=== PATIENT | female | born 1940 | race Caucasian/White ===

== ENCOUNTER 2018-02-25 11:11 | Emergency (ER) | payer OTHER, MEDICARE ==
[2018-02-25 11:34] VITALS: TEMP 98.6; BMI 33.1
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
[2018-02-25 12:46] LABS: BASO % 0.9 % (0-2.0); EOS % 3.2 % (0-4.5); HEMATOCRIT 34.7 % (32.4-45.2); HEMOGLOBIN 11.9 GM/dL (10.7-15.3); LYMPH % 16.2 % (8-40); MCH 26.1 pg (25.7-33.7); MCHC 34.2 g/dl (32.0-36.0); MEAN CELL VOLUME 76.5 fl (80-96); MEAN PLT VOLUME 9.4 fl (7.5-11.1); MONO % 7.5 % (3.8-10.2); NEUT % 72.2 % (42.8-82.8); PLATELET COUNT 225 K/MM3 (134-434); RBC 4.53 M/mm3 (3.60-5.2); WHITE BLOOD COUNT 5.9 K/mm3 (4.0-10.0)
[2018-02-25 13:09] LABS: ALBUMIN 3.4 g/dl (3.4-5.0); ANION GAP 3 (8-16); BLOOD UREA NITROGEN 22 mg/dL (7-18); CALCIUM 9.5 mg/dL (8.5-10.1); CHLORIDE 101 mmol/L (98-107); CO2 34 mmol/L (21-32); CREATININE 0.6 mg/dL (0.55-1.02); GLUCOSE,RANDOM 86 mg/dL (74-106); SGPT/ALT 14 U/L (12-78); SODIUM 138 mmol/L (136-145)
[2018-02-25 13:11] LABS: ALK PHOS 73 U/L (45-117); BILIRUBIN,TOTAL 0.9 mg/dL (0.2-1.0); POTASSIUM 4.3 mmol/L (3.5-5.1); SGOT/AST 39 U/L (15-37); TOT PROT 7.1 g/dl (6.4-8.2)
[2018-02-25 15:44] VITALS: BP 132/82; PULSE 64
== END 2018-02-25 15:14 | disposition home or self-care (01) ==
LOC: JER 11:11
DX: K64.9 Unspecified hemorrhoids (principal); I48.91 Unspecified atrial fibrillation; Z79.01 Long term (current) use of anticoagulants; I10 Essential (primary) hypertension; I50.9 Heart failure, unspecified; D64.9 Anemia, unspecified; D69.6 Thrombocytopenia, unspecified; K52.9 Noninfective gastroenteritis and colitis, unspecified; N39.498 Other specified urinary incontinence; Z90.49 Acquired absence of other specified parts of digestive tract; Z96.651 Presence of right artificial knee joint
CPT/HCPCS: 36415; 80053; 82272; 85025; 99281-25

== ENCOUNTER 2021-10-13 13:02 | Inpatient (IN) | payer OTHER ==
[2021-10-13 13:21] VITALS: BMI 31.0
[2021-10-13] MEDS ORDERED: FAMOTIDINE 20 MG/50 ML IVPB 20 MG/50 ML MG IVPB ONE ×2 (13:49→14:37)
[2021-10-13 15:06] LABS: EOS % 2.4 % (0-4.5); HEMATOCRIT 29.8 % (32.4-45.2); HEMOGLOBIN 9.7 GM/dL (10.7-15.3); LYMPH % 8.4 % (8-40); MCH 25.1 pg (25.7-33.7); MCHC 32.6 g/dl (32.0-36.0); MEAN PLT VOLUME 8.6 fl (7.5-11.1); MONO % 6.7 % (3.8-10.2); NEUT % 81.5 % (42.8-82.8); PLATELET COUNT 221 10^3/uL (134-434); RBC 3.87 M/mm3 (3.60-5.2); RDW 18.3 % (11.6-15.6); WHITE BLOOD COUNT 8.1 K/mm3 (4.0-10.0)
[2021-10-13 15:12] LABS: INR 1.91 (0.83-1.09); PROTHROMBIN TIME (PATIENT) 21.5 SEC (9.7-13.0)
[2021-10-13 15:15] LABS: ACTIVATED PTT 65.6 SECONDS (25.2-36.5)
[2021-10-13 15:19] LABS: EPI CELLS 10 /uL (0-25.1); HYALINE CASTS 1 /uL (0-3.1); URINE APPEARANCE CLEAR; URINE BACTERIA >9,000 /uL (0-1359); URINE BILIRUBIN NEGATIVE (NEGATIVE); URINE COLOR YELLOW; URINE GLUCOSE (UA) NEGATIVE (NEGATIVE); URINE KETONE NEGATIVE (NEGATIVE); URINE LEUK ESTERASE TRACE (NEGATIVE); URINE NITRITE POSITIVE (NEGATIVE); URINE PROTEIN NEGATIVE (NEGATIVE); URINE RBC 5 /uL (0-23.9); URINE WBC 53 /uL (0-25.8)
[2021-10-13] MEDS ORDERED: CEFTRIAXONE 1,000 MG in DEXTROSE 5%-WATER - 50 ML IVPB ONE ×2 (15:24→19:41)
[2021-10-13 15:31] LABS: CHLORIDE 97 mmol/L (98-107); SODIUM 137 mmol/L (136-145)
[2021-10-13 15:33] LABS: ALBUMIN 3.3 g/dl (3.4-5.0); ANION GAP 7 MMOL/L (8-16); CALCIUM 9.3 mg/dL (8.5-10.1); CO2 33 mmol/L (21-32); GLUCOSE,RANDOM 124 mg/dL (74-106); MAGNESIUM 2.5 mg/dL (1.8-2.4)
[2021-10-13 15:36] LABS: CREATININE 0.8 mg/dL (0.55-1.3); SGOT/AST 11 U/L (15-37)
[2021-10-13 15:37] LABS: SGPT/ALT 15 U/L (13-61)
[2021-10-13 15:38] LABS: BILIRUBIN,TOTAL 0.6 mg/dL (0.2-1)
[2021-10-13 15:39] LABS: ALK PHOS 114 U/L (45-117)
[2021-10-13 15:41] LABS: N-TERMINAL BNP 1450.1 pg/ml (5-450)
[2021-10-13] MEDS ORDERED: CEFTRIAXONE 1 GM/50 ML BAG ONE ×2 (15:43→19:50)
[2021-10-13] MEDS ORDERED: POTASSIUM CHLORIDE TABS 20 MEQ TABLET.ER (FP) PO ONE ×3 (16:08→21:11)
[2021-10-13 18:11] LABS: LIPASE 109 U/L (73-393)
[2021-10-13] MEDS ORDERED: FUROSEMIDE 40 MG/4 ML INJECTABLE VIAL IVPUSH ONE (20:23)
[2021-10-13] MEDS ORDERED: FUROSEMIDE 40 MG/4 ML INJECTABLE VIAL ONE (21:11)
[2021-10-13] MEDS ORDERED: APIXABAN 5 MG TABLET ONE (22:11)
[2021-10-13] MEDS: APIXABAN 5 MG TABLET PO SCH (22:14)
[2021-10-14] MEDS: FUROSEMIDE 40 MG/4 ML INJECTABLE VIAL IVPUSH SCH ×2 (05:50→13:47)
[2021-10-14] MEDS ORDERED: DEXTROSE 5%-WATER - 50 ML IVPB ONE (08:30)
[2021-10-14] MEDS ORDERED: cefTRIAXone SODIUM 1 GM VIAL ONE (08:30)
[2021-10-14 08:31] LABS: HEMATOCRIT 28.4 % (32.4-45.2); HEMOGLOBIN 9.2 GM/dL (10.7-15.3); MCH 25.2 pg (25.7-33.7); MCHC 32.3 g/dl (32.0-36.0); MEAN PLT VOLUME 9.1 fl (7.5-11.1); PLATELET COUNT 210 10^3/uL (134-434); RBC 3.65 M/mm3 (3.60-5.2); RDW 18.4 % (11.6-15.6); WHITE BLOOD COUNT 8.4 K/mm3 (4.0-10.0)
[2021-10-14] MEDS ORDERED: PT OWN MED DRAWER 7, Y5N ONE (08:37)
[2021-10-14 09:03] LABS: IRON SERUM 25 ug/dL (50-175); TOTAL IRON BINDING CAPACITY 346 ug/dL (250-450)
[2021-10-14 09:07] LABS: ALBUMIN 2.9 g/dl (3.4-5.0); BLOOD UREA NITROGEN 17.5 mg/dL (7-18)
[2021-10-14 09:08] LABS: MAGNESIUM 2.4 mg/dL (1.8-2.4)
[2021-10-14 09:10] LABS: CREATININE 0.7 mg/dL (0.55-1.3); PHOSPHOROUS 3.5 mg/dL (2.5-4.9)
[2021-10-14 09:12] LABS: BILIRUBIN,TOTAL 0.6 mg/dL (0.2-1); TOT PROT 6.3 g/dl (6.4-8.2)
[2021-10-14] MEDS: CEFTRIAXONE 1 GM in DEXTROSE 5%-WATER - 50 ML IVPB SCH (09:47)
[2021-10-14] MEDS: PANTOPRAZOLE 20 MG TABLET PO SCH (09:47)
[2021-10-14] MEDS: APIXABAN 5 MG TABLET PO SCH ×2 (09:47→21:35)
[2021-10-14] MEDS ORDERED: SPIRONOLACTONE 25 MG TABLET PO SCH (10:00)
[2021-10-14] MEDS: FERROUS SO4 325 MG TABLET (FP) PO SCH (18:06)
[2021-10-14] MEDS ORDERED: TETRAHYDROZOLINE HCL EYE DROPS OU PRN (23:34)
[2021-10-15] MEDS: ARTIFICIAL TEARS (POLYVINYL ALCOHOL) OPTH DROPS OU PRN ×3 (00:41→22:42)
[2021-10-15] MEDS: FUROSEMIDE 40 MG/4 ML INJECTABLE VIAL IVPUSH SCH ×2 (06:54→14:32)
[2021-10-15 06:58] LABS: EOS % 6.1 % (0-4.5); HEMATOCRIT 27.6 % (32.4-45.2); HEMOGLOBIN 8.9 GM/dL (10.7-15.3); LYMPH % 12.7 % (8-40); MCHC 32.1 g/dl (32.0-36.0); MEAN CELL VOLUME 77.9 fl (80-96); MONO % 8.7 % (3.8-10.2); NEUT % 71.5 % (42.8-82.8); PLATELET COUNT 200 10^3/uL (134-434); RBC 3.55 M/mm3 (3.60-5.2); RDW 18.7 % (11.6-15.6); WHITE BLOOD COUNT 7.6 K/mm3 (4.0-10.0)
[2021-10-15 07:20] LABS: ALBUMIN 2.8 g/dl (3.4-5.0)
[2021-10-15 07:23] LABS: CREATININE 0.7 mg/dL (0.55-1.3)
[2021-10-15 07:25] LABS: BILIRUBIN,TOTAL 0.4 mg/dL (0.2-1); TOT PROT 5.9 g/dl (6.4-8.2)
[2021-10-15] MEDS ORDERED: cefTRIAXone SODIUM 1 GM VIAL ONE (08:40)
[2021-10-15] MEDS ORDERED: DEXTROSE 5%-WATER - 50 ML IVPB ONE (08:40)
[2021-10-15] MEDS ORDERED: MINERAL OIL ENEMA 133 ML ENEMA RC ONE (09:31)
[2021-10-15] MEDS: POLYETHYLENE GLYCOL (HEALTHYLAX) 3350 17 GM PACKET PO SCH (10:01)
[2021-10-15] MEDS: PANTOPRAZOLE 20 MG TABLET PO SCH (10:01)
[2021-10-15] MEDS: CEFTRIAXONE 1 GM in DEXTROSE 5%-WATER - 50 ML IVPB SCH (10:01)
[2021-10-15] MEDS: SPIRONOLACTONE 25 MG TABLET PO SCH (10:01)
[2021-10-15] MEDS: APIXABAN 5 MG TABLET PO SCH ×2 (10:01→21:03)
[2021-10-15] MEDS: amLODIPine BESYLATE 5 MG TABLET (FP) PO SCH (10:02)
[2021-10-15] MEDS: FERROUS SO4 325 MG TABLET (FP) PO SCH ×2 (10:02→17:07)
[2021-10-15] MEDS ORDERED: PT OWN MED DRAWER 7, Y5N ONE (21:13)
[2021-10-15] MEDS ORDERED: MELATONIN 5 MG TABLETS PO ONE (23:46)
[2021-10-16] MEDS: FUROSEMIDE 40 MG/4 ML INJECTABLE VIAL IVPUSH SCH ×2 (06:06→14:28)
[2021-10-16 07:19] LABS: BASO % 1.1 % (0-2.0); EOS % 5.8 % (0-4.5); HEMOGLOBIN 9.2 GM/dL (10.7-15.3); LYMPH % 11.2 % (8-40); MCH 25.2 pg (25.7-33.7); MCHC 32.7 g/dl (32.0-36.0); MEAN CELL VOLUME 76.9 fl (80-96); MEAN PLT VOLUME 8.7 fl (7.5-11.1); MONO % 8.3 % (3.8-10.2); NEUT % 73.6 % (42.8-82.8); PLATELET COUNT 202 10^3/uL (134-434); RBC 3.64 M/mm3 (3.60-5.2); RDW 18.1 % (11.6-15.6); WHITE BLOOD COUNT 7.9 K/mm3 (4.0-10.0)
[2021-10-16 08:06] LABS: ALBUMIN 2.8 g/dl (3.4-5.0); CALCIUM 9.2 mg/dL (8.5-10.1); PHOSPHOROUS 3.6 mg/dL (2.5-4.9)
[2021-10-16 08:07] LABS: BILIRUBIN,TOTAL 0.6 mg/dL (0.2-1); BLOOD UREA NITROGEN 16.9 mg/dL (7-18); MAGNESIUM 2.6 mg/dL (1.8-2.4); TOT PROT 6.2 g/dl (6.4-8.2)
[2021-10-16 08:10] LABS: CREATININE 0.7 mg/dL (0.55-1.3)
[2021-10-16] MEDS ORDERED: cefTRIAXone SODIUM 1 GM VIAL ONE (08:20)
[2021-10-16] MEDS ORDERED: DEXTROSE 5%-WATER - 50 ML IVPB ONE (08:20)
[2021-10-16] MEDS: PANTOPRAZOLE 20 MG TABLET PO SCH (10:02)
[2021-10-16] MEDS: FERROUS SO4 325 MG TABLET (FP) PO SCH ×2 (10:02→16:49)
[2021-10-16] MEDS: APIXABAN 5 MG TABLET PO SCH ×2 (10:03→21:31)
[2021-10-16] MEDS: amLODIPine BESYLATE 5 MG TABLET (FP) PO SCH (10:03)
[2021-10-16] MEDS: CEFTRIAXONE 1 GM in DEXTROSE 5%-WATER - 50 ML IVPB SCH (10:04)
[2021-10-16] MEDS: SPIRONOLACTONE 25 MG TABLET PO SCH (10:04)
[2021-10-16] MEDS: POLYETHYLENE GLYCOL (HEALTHYLAX) 3350 17 GM PACKET PO SCH (10:22)
[2021-10-16] MEDS ORDERED: MELATONIN 5 MG TABLETS PO ONE (20:50)
[2021-10-17] MEDS: FUROSEMIDE 40 MG/4 ML INJECTABLE VIAL IVPUSH SCH ×2 (06:06→14:49)
[2021-10-17] MEDS ORDERED: cefTRIAXone SODIUM 1 GM VIAL ONE (09:05)
[2021-10-17] MEDS ORDERED: DEXTROSE 5%-WATER - 50 ML IVPB ONE (09:05)
[2021-10-17] MEDS: APIXABAN 5 MG TABLET PO SCH ×2 (09:43→23:20)
[2021-10-17] MEDS: CEFTRIAXONE 1 GM in DEXTROSE 5%-WATER - 50 ML IVPB SCH (09:44)
[2021-10-17] MEDS: FERROUS SO4 325 MG TABLET (FP) PO SCH ×2 (09:44→16:44)
[2021-10-17] MEDS: SPIRONOLACTONE 25 MG TABLET PO SCH (09:44)
[2021-10-17] MEDS: PANTOPRAZOLE 20 MG TABLET PO SCH (09:44)
[2021-10-17] MEDS: amLODIPine BESYLATE 5 MG TABLET (FP) PO SCH (09:44)
[2021-10-17] MEDS: POLYETHYLENE GLYCOL (HEALTHYLAX) 3350 17 GM PACKET PO SCH (09:44)
[2021-10-17 10:59] LABS: BASO % 0.8 % (0-2.0); EOS % 3.8 % (0-4.5); HEMATOCRIT 30.2 % (32.4-45.2); HEMOGLOBIN 9.8 GM/dL (10.7-15.3); LYMPH % 9.4 % (8-40); MCH 25.2 pg (25.7-33.7); MCHC 32.4 g/dl (32.0-36.0); MEAN CELL VOLUME 77.9 fl (80-96); MEAN PLT VOLUME 8.9 fl (7.5-11.1); MONO % 7.1 % (3.8-10.2); NEUT % 78.9 % (42.8-82.8); PLATELET COUNT 246 10^3/uL (134-434); RBC 3.87 M/mm3 (3.60-5.2); RDW 18.1 % (11.6-15.6); WHITE BLOOD COUNT 8.2 K/mm3 (4.0-10.0)
[2021-10-17 11:16] LABS: ALBUMIN 3.2 g/dl (3.4-5.0); BLOOD UREA NITROGEN 16.6 mg/dL (7-18); CALCIUM 9.2 mg/dL (8.5-10.1)
[2021-10-17 11:17] LABS: MAGNESIUM 2.6 mg/dL (1.8-2.4)
[2021-10-17 11:20] LABS: CREATININE 0.7 mg/dL (0.55-1.3); PHOSPHOROUS 3.3 mg/dL (2.5-4.9)
[2021-10-17 11:21] LABS: BILIRUBIN,TOTAL 0.4 mg/dL (0.2-1); TOT PROT 6.8 g/dl (6.4-8.2)
[2021-10-17] MEDS ORDERED: MELATONIN 5 MG TABLETS PO ONE (21:29)
[2021-10-18] MEDS: FUROSEMIDE 40 MG/4 ML INJECTABLE VIAL IVPUSH SCH (06:55)
[2021-10-18 07:23] LABS: ALBUMIN 2.6 g/dl (3.4-5.0); BLOOD UREA NITROGEN 16.4 mg/dL (7-18); CALCIUM 9.1 mg/dL (8.5-10.1)
[2021-10-18 07:26] LABS: CREATININE 0.6 mg/dL (0.55-1.3)
[2021-10-18 07:28] LABS: BILIRUBIN,TOTAL 0.4 mg/dL (0.2-1); TOT PROT 5.8 g/dl (6.4-8.2)
[2021-10-18 07:59] LABS: HEMATOCRIT 28.4 % (32.4-45.2); HEMOGLOBIN 9.2 GM/dL (10.7-15.3); MCH 25.1 pg (25.7-33.7); MCHC 32.3 g/dl (32.0-36.0); MEAN CELL VOLUME 77.8 fl (80-96); PLATELET COUNT 208 10^3/uL (134-434); RBC 3.65 M/mm3 (3.60-5.2); RDW 18.4 % (11.6-15.6)
[2021-10-18] MEDS ORDERED: cefTRIAXone SODIUM 1 GM VIAL ONE (08:59)
[2021-10-18] MEDS ORDERED: DEXTROSE 5%-WATER - 50 ML IVPB ONE (09:00)
[2021-10-18] MEDS: CEFTRIAXONE 1 GM in DEXTROSE 5%-WATER - 50 ML IVPB SCH (09:24)
[2021-10-18] MEDS: amLODIPine BESYLATE 5 MG TABLET (FP) PO SCH (09:32)
[2021-10-18] MEDS: SPIRONOLACTONE 25 MG TABLET PO SCH (09:32)
[2021-10-18] MEDS: FERROUS SO4 325 MG TABLET (FP) PO SCH ×2 (09:33→18:23)
[2021-10-18] MEDS: PANTOPRAZOLE 20 MG TABLET PO SCH (09:33)
[2021-10-18] MEDS: APIXABAN 5 MG TABLET PO SCH ×2 (09:33→21:55)
[2021-10-18] MEDS: POLYETHYLENE GLYCOL (HEALTHYLAX) 3350 17 GM PACKET PO SCH (09:34)
[2021-10-18] MEDS: TORSEMIDE 20 MG TABLET (FP) PO SCH (13:35)
[2021-10-18] MEDS ORDERED: FUROSEMIDE 40 MG TABLET (FP) PO SCH (14:00)
[2021-10-19] MEDS: TORSEMIDE 20 MG TABLET (FP) PO SCH (05:11)
[2021-10-19 07:51] VITALS: BP 114/64; PULSE 68; TEMP 98.4
[2021-10-19] MEDS ORDERED: DEXTROSE 5%-WATER - 50 ML IVPB ONE (10:00)
[2021-10-19] MEDS ORDERED: cefTRIAXone SODIUM 1 GM VIAL ONE (10:00)
[2021-10-19] MEDS: PANTOPRAZOLE 20 MG TABLET PO SCH (10:08)
[2021-10-19] MEDS: APIXABAN 5 MG TABLET PO SCH (10:08)
[2021-10-19] MEDS: SPIRONOLACTONE 25 MG TABLET PO SCH (10:08)
[2021-10-19] MEDS: amLODIPine BESYLATE 5 MG TABLET (FP) PO SCH (10:08)
[2021-10-19] MEDS: CEFTRIAXONE 1 GM in DEXTROSE 5%-WATER - 50 ML IVPB SCH (10:09)
[2021-10-19] MEDS: FERROUS SO4 325 MG TABLET (FP) PO SCH (10:09)
[2021-10-19] MEDS: POLYETHYLENE GLYCOL (HEALTHYLAX) 3350 17 GM PACKET PO SCH (10:10)
== END 2021-10-19 14:19 | disposition home or self-care (01) | DRG 291 ==
LOC: JER 13:02 → JERBED 16:21 → J4W 10-14 02:50
PROVIDERS: ADMIT Internal Medicine; ATTEND Internal Medicine
DX: I11.0 Hypertensive heart disease with heart failure (principal); I50.33 Acute on chronic diastolic (congestive) heart failure; N39.0 Urinary tract infection, site not specified; K21.9 Gastro-esophageal reflux disease without esophagitis; E87.6 Hypokalemia; I48.91 Unspecified atrial fibrillation; M32.9 Systemic lupus erythematosus, unspecified; B96.20 Unspecified Escherichia coli [E. coli] as the cause of diseases classified elsewhere; R10.13 Epigastric pain; I27.20 Pulmonary hypertension, unspecified; G47.33 Obstructive sleep apnea (adult) (pediatric); I08.1 Rheumatic disorders of both mitral and tricuspid valves; H57.02 Anisocoria; D50.9 Iron deficiency anemia, unspecified
CPT/HCPCS: 36415; 70450-TC; 71045-TC-FY; 80053; 81003; 82272; 82550; 82728; 82962; 83540; 83550; 83690; 83735; 83880; 84100; 84484; 85025; 85027; 85610; 85730; 87086; 87186; 93005; 93010; 93970-TC; 97116-GP; 97162-GP; 99285-25; C9803; U0003; U0005

== ENCOUNTER 2022-02-11 10:04 | Inpatient (IN) | payer OTHER ==
[2022-02-11 11:07] LABS: BASO % 0.5 % (0-2.0); EOS % 0.7 % (0-4.5); HEMATOCRIT 30.9 % (32.4-45.2); HEMOGLOBIN 9.9 GM/dL (10.7-15.3); LYMPH % 7.2 % (8-40); MCH 23.9 pg (25.7-33.7); MCHC 32.2 g/dl (32.0-36.0); MEAN CELL VOLUME 74.4 fl (80-96); MONO % 6.6 % (3.8-10.2); PLATELET COUNT 251 10^3/uL (134-434); RBC 4.15 M/mm3 (3.60-5.2); RDW 18.4 % (11.6-15.6); WHITE BLOOD COUNT 8.3 K/mm3 (4.0-10.0)
[2022-02-11 11:29] LABS: CHLORIDE 84 mmol/L (98-107); SODIUM 129 mmol/L (136-145)
[2022-02-11 11:31] LABS: CALCIUM 9.5 mg/dL (8.5-10.1)
[2022-02-11 11:32] LABS: ALBUMIN 3.7 g/dl (3.4-5.0); BLOOD UREA NITROGEN 40.6 mg/dL (7-18); CO2 37 mmol/L (21-32); GLUCOSE,RANDOM 151 mg/dL (74-106); MAGNESIUM 2.7 mg/dL (1.8-2.4)
[2022-02-11 11:34] LABS: SGPT/ALT 14 U/L (13-61)
[2022-02-11 11:35] LABS: CREATININE 1.1 mg/dL (0.55-1.3); PHOSPHOROUS 4.8 mg/dL (2.5-4.9); SGOT/AST 11 U/L (15-37)
[2022-02-11 11:36] LABS: BILIRUBIN,TOTAL 0.5 mg/dL (0.2-1); TOT PROT 7.2 g/dl (6.4-8.2)
[2022-02-11 11:37] LABS: ALK PHOS 124 U/L (45-117); ANION GAP 8 MMOL/L (8-16)
[2022-02-11] MEDS ORDERED: POTASSIUM CHLORIDE TABS 20 MEQ TABLET.ER (FP) PO ONE ×2 (12:01→12:07)
[2022-02-11] MEDS ORDERED: LACTATED RINGERS SOLUTION 1000 ML INFUS.BAG IV ONE (12:01)
[2022-02-11 13:58] LABS: EPI CELLS 6 /uL (0-25.1); HYALINE CASTS 1 /uL (0-3.1); PH,URINE 5.5 (5.0-8.0); URINE APPEARANCE CLEAR; URINE BACTERIA 7584 /uL (0-1359); URINE BILIRUBIN NEGATIVE (NEGATIVE); URINE COLOR YELLOW; URINE GLUCOSE (UA) NEGATIVE (NEGATIVE); URINE KETONE NEGATIVE (NEGATIVE); URINE LEUK ESTERASE TRACE (NEGATIVE); URINE NITRITE NEGATIVE (NEGATIVE); URINE PROTEIN NEGATIVE (NEGATIVE); URINE RBC 4 /uL (0-23.9); URINE UROBILINOGEN 0.2 mg/dL (0.2-1.0); URINE WBC 18 /uL (0-25.8)
[2022-02-11] MEDS ORDERED: POTASSIUM CHLORIDE ORAL LIQUID 20 MEQ/15 ML PO ONE (14:11)
[2022-02-11] MEDS ORDERED: POTASSIUM CHLORIDE ORAL LIQUID 20 MEQ/15 ML ONE (14:38)
[2022-02-11 15:43] LABS: BLOOD UREA NITROGEN 41.5 mg/dL (7-18); CALCIUM 9.3 mg/dL (8.5-10.1)
[2022-02-11 17:02] VITALS: BMI 29.6
[2022-02-11] MEDS: APIXABAN 5 MG TABLET PO SCH (21:19)
[2022-02-12] MEDS: TORSEMIDE 20 MG TABLET (FP) PO SCH ×2 (06:05→14:26)
[2022-02-12 07:55] LABS: BASO % 0.8 % (0-2.0); EOS % 2.1 % (0-4.5); HEMATOCRIT 28.1 % (32.4-45.2); HEMOGLOBIN 9.1 GM/dL (10.7-15.3); LYMPH % 9.4 % (8-40); MCH 24.4 pg (25.7-33.7); MCHC 32.5 g/dl (32.0-36.0); MEAN CELL VOLUME 75.1 fl (80-96); MEAN PLT VOLUME 9.1 fl (7.5-11.1); MONO % 7.3 % (3.8-10.2); NEUT % 80.4 % (42.8-82.8); PLATELET COUNT 214 10^3/uL (134-434); RBC 3.75 M/mm3 (3.60-5.2); RDW 18.5 % (11.6-15.6); WHITE BLOOD COUNT 8.5 K/mm3 (4.0-10.0)
[2022-02-12 08:18] LABS: ALBUMIN 3.3 g/dl (3.4-5.0); BLOOD UREA NITROGEN 33.2 mg/dL (7-18); CALCIUM 9.1 mg/dL (8.5-10.1)
[2022-02-12 08:19] LABS: MAGNESIUM 2.7 mg/dL (1.8-2.4)
[2022-02-12 08:20] LABS: CREATININE 0.7 mg/dL (0.55-1.3)
[2022-02-12 08:21] LABS: BILIRUBIN,TOTAL 0.8 mg/dL (0.2-1); TOT PROT 6.5 g/dl (6.4-8.2)
[2022-02-12] MEDS: amLODIPine BESYLATE 5 MG TABLET (FP) PO SCH (10:31)
[2022-02-12] MEDS: SPIRONOLACTONE 25 MG TABLET PO SCH (10:31)
[2022-02-12] MEDS: APIXABAN 5 MG TABLET PO SCH ×2 (10:31→21:14)
[2022-02-12] MEDS: CEFTRIAXONE 1 GM in DEXTROSE 5%-WATER - 50 ML IVPB SCH (10:45)
[2022-02-12] MEDS ORDERED: POLYETHYLENE GLYCOL (HEALTHYLAX) 3350 17 GM PACKET PO SCH (11:00)
[2022-02-12] MEDS ORDERED: cefTRIAXone SODIUM 1 GM VIAL ONE (12:45)
[2022-02-12] MEDS ORDERED: DEXTROSE 5%-WATER - 50 ML IVPB ONE (12:45)
[2022-02-12] MEDS ORDERED: POTASSIUM CHLORIDE TABS 20 MEQ TABLET.ER (FP) PO ONE (15:41)
[2022-02-12] MEDS: KCL 10 MEQ IVPB 10 MEQ/100 ML INFUS.BAG IVPB SCH ×2 (15:45→16:45)
[2022-02-12] MEDS: POLYETHYLENE GLYCOL (HEALTHYLAX) 3350 17 GM PACKET PO SCH (21:14)
[2022-02-12] MEDS: SENNOSIDES 8.6MG TABLET (FP) PO SCH (21:14)
[2022-02-13] MEDS: TORSEMIDE 20 MG TABLET (FP) PO SCH ×2 (05:56→14:08)
[2022-02-13 07:15] LABS: BASO % 0.8 % (0-2.0); EOS % 3.2 % (0-4.5); HEMATOCRIT 29.1 % (32.4-45.2); HEMOGLOBIN 9.3 GM/dL (10.7-15.3); LYMPH % 12.6 % (8-40); MCH 24.2 pg (25.7-33.7); MCHC 32.1 g/dl (32.0-36.0); MEAN CELL VOLUME 75.4 fl (80-96); MEAN PLT VOLUME 9.1 fl (7.5-11.1); MONO % 7.8 % (3.8-10.2); NEUT % 75.6 % (42.8-82.8); PLATELET COUNT 238 10^3/uL (134-434); RBC 3.85 M/mm3 (3.60-5.2); RDW 18.6 % (11.6-15.6); WHITE BLOOD COUNT 8.4 K/mm3 (4.0-10.0)
[2022-02-13 07:40] LABS: BLOOD UREA NITROGEN 32.8 mg/dL (7-18)
[2022-02-13 07:43] LABS: CALCIUM 9.2 mg/dL (8.5-10.1); CREATININE 0.7 mg/dL (0.55-1.3); MAGNESIUM 2.6 mg/dL (1.8-2.4); PHOSPHOROUS 3.3 mg/dL (2.5-4.9)
[2022-02-13] MEDS ORDERED: DOCUSATE SODIUM 100 MG CAPSULE (FP) PO PRN (10:04)
[2022-02-13] MEDS ORDERED: DEXTROSE 5%-WATER - 50 ML IVPB ONE (10:07)
[2022-02-13] MEDS ORDERED: cefTRIAXone SODIUM 1 GM VIAL ONE (10:07)
[2022-02-13] MEDS: amLODIPine BESYLATE 5 MG TABLET (FP) PO SCH (10:31)
[2022-02-13] MEDS: FERROUS SO4 325 MG TABLET (FP) PO SCH (10:31)
[2022-02-13] MEDS: APIXABAN 5 MG TABLET PO SCH ×2 (10:31→21:05)
[2022-02-13] MEDS: LACTOBACILLUS ACIDOPHILUS 1 TABLET PO SCH (10:31)
[2022-02-13] MEDS: CEFTRIAXONE 1 GM in DEXTROSE 5%-WATER - 50 ML IVPB SCH (10:31)
[2022-02-13] MEDS: SPIRONOLACTONE 25 MG TABLET PO SCH (10:31)
[2022-02-13] MEDS: POLYETHYLENE GLYCOL (HEALTHYLAX) 3350 17 GM PACKET PO SCH (10:46)
[2022-02-13] MEDS: SENNOSIDES 8.6MG TABLET (FP) PO SCH (21:05)
[2022-02-13] MEDS: ARTIFICIAL TEARS (POLYVINYL ALCOHOL) OPTH DROPS OU PRN (22:23)
[2022-02-14 06:39] LABS: BASO % 1.1 % (0-2.0); EOS % 3.4 % (0-4.5); HEMATOCRIT 29.2 % (32.4-45.2); HEMOGLOBIN 9.2 GM/dL (10.7-15.3); LYMPH % 11.1 % (8-40); MCH 23.8 pg (25.7-33.7); MCHC 31.6 g/dl (32.0-36.0); MEAN CELL VOLUME 75.5 fl (80-96); MEAN PLT VOLUME 8.8 fl (7.5-11.1); MONO % 7.6 % (3.8-10.2); NEUT % 76.8 % (42.8-82.8); PLATELET COUNT 222 10^3/uL (134-434); RBC 3.86 M/mm3 (3.60-5.2); RDW 18.3 % (11.6-15.6); WHITE BLOOD COUNT 8.2 K/mm3 (4.0-10.0)
[2022-02-14] MEDS: TORSEMIDE 20 MG TABLET (FP) PO SCH ×2 (06:40→14:04)
[2022-02-14 07:01] LABS: BLOOD UREA NITROGEN 30.3 mg/dL (7-18); MAGNESIUM 2.4 mg/dL (1.8-2.4)
[2022-02-14 07:05] LABS: CREATININE 0.6 mg/dL (0.55-1.3); PHOSPHOROUS 3.4 mg/dL (2.5-4.9)
[2022-02-14] MEDS ORDERED: GLYCERIN 1 RECTAL SUPPOSITORY, ADULT PR ONE (08:53)
[2022-02-14] MEDS ORDERED: DEXTROSE 5%-WATER - 50 ML IVPB ONE (09:11)
[2022-02-14] MEDS ORDERED: cefTRIAXone SODIUM 1 GM VIAL ONE (09:11)
[2022-02-14] MEDS: APIXABAN 5 MG TABLET PO SCH ×2 (10:00→21:48)
[2022-02-14] MEDS: DOCUSATE SODIUM 100 MG CAPSULE (FP) PO SCH ×2 (10:00→21:48)
[2022-02-14] MEDS: CEFTRIAXONE 1 GM in DEXTROSE 5%-WATER - 50 ML IVPB SCH (10:01)
[2022-02-14] MEDS: SPIRONOLACTONE 25 MG TABLET PO SCH (10:01)
[2022-02-14] MEDS: FERROUS SO4 325 MG TABLET (FP) PO SCH (10:01)
[2022-02-14] MEDS: amLODIPine BESYLATE 5 MG TABLET (FP) PO SCH (10:01)
[2022-02-14] MEDS: metoPROLOL SUCCINATE 25 MG TAB.SR.24H (FP) PO SCH (10:01)
[2022-02-14] MEDS: POTASSIUM CHLORIDE ORAL LIQUID 20 MEQ/15 ML PO SCH ×2 (10:03→21:48)
[2022-02-14] MEDS: LACTOBACILLUS ACIDOPHILUS 1 TABLET PO SCH (10:06)
[2022-02-14] MEDS: SENNOSIDES 8.6MG TABLET (FP) PO SCH (21:48)
[2022-02-15] MEDS: TORSEMIDE 20 MG TABLET (FP) PO SCH ×2 (06:34→14:21)
[2022-02-15] MEDS: ARTIFICIAL TEARS (POLYVINYL ALCOHOL) OPTH DROPS OU PRN (07:07)
[2022-02-15 07:25] LABS: EOS % 3.2 % (0-4.5); HEMATOCRIT 27.9 % (32.4-45.2); HEMOGLOBIN 9.2 GM/dL (10.7-15.3); LYMPH % 12.1 % (8-40); MCH 24.7 pg (25.7-33.7); MCHC 32.9 g/dl (32.0-36.0); MEAN PLT VOLUME 8.9 fl (7.5-11.1); MONO % 7.6 % (3.8-10.2); NEUT % 76.1 % (42.8-82.8); PLATELET COUNT 220 10^3/uL (134-434); RBC 3.72 M/mm3 (3.60-5.2); RDW 18.3 % (11.6-15.6); WHITE BLOOD COUNT 8.6 K/mm3 (4.0-10.0)
[2022-02-15 07:51] LABS: CALCIUM 9.1 mg/dL (8.5-10.1)
[2022-02-15 07:52] LABS: BLOOD UREA NITROGEN 30.9 mg/dL (7-18); MAGNESIUM 2.6 mg/dL (1.8-2.4)
[2022-02-15 07:56] LABS: CREATININE 0.7 mg/dL (0.55-1.3); PHOSPHOROUS 3.4 mg/dL (2.5-4.9)
[2022-02-15] MEDS ORDERED: cefTRIAXone SODIUM 1 GM VIAL ONE (09:06)
[2022-02-15] MEDS ORDERED: DEXTROSE 5%-WATER - 50 ML IVPB ONE (09:07)
[2022-02-15] MEDS: LACTOBACILLUS ACIDOPHILUS 1 TABLET PO SCH (09:14)
[2022-02-15] MEDS: SPIRONOLACTONE 25 MG TABLET PO SCH (09:14)
[2022-02-15] MEDS: APIXABAN 5 MG TABLET PO SCH ×2 (09:14→22:06)
[2022-02-15] MEDS: metoPROLOL SUCCINATE 25 MG TAB.SR.24H (FP) PO SCH (09:15)
[2022-02-15] MEDS: POTASSIUM CHLORIDE TABS 20 MEQ TABLET.ER (FP) PO SCH (09:15)
[2022-02-15] MEDS: amLODIPine BESYLATE 5 MG TABLET (FP) PO SCH (09:15)
[2022-02-15] MEDS: DOCUSATE SODIUM 100 MG CAPSULE (FP) PO SCH ×2 (09:15→22:06)
[2022-02-15] MEDS: FERROUS SO4 325 MG TABLET (FP) PO SCH (09:15)
[2022-02-15] MEDS: CEFTRIAXONE 1 GM in DEXTROSE 5%-WATER - 50 ML IVPB SCH (09:16)
[2022-02-15] MEDS: SENNOSIDES 8.6MG TABLET (FP) PO SCH (22:06)
[2022-02-16] MEDS: TORSEMIDE 20 MG TABLET (FP) PO SCH ×2 (06:26→13:41)
[2022-02-16 07:30] VITALS: PULSE 83
[2022-02-16] MEDS: CEFTRIAXONE 1 GM in DEXTROSE 5%-WATER - 50 ML IVPB SCH (10:39)
[2022-02-16] MEDS ORDERED: CEFUROXIME AXETIL 500 MG TABLET PO SCH (10:45)
[2022-02-16] MEDS: POTASSIUM CHLORIDE TABS 20 MEQ TABLET.ER (FP) PO SCH (10:55)
[2022-02-16] MEDS: SPIRONOLACTONE 25 MG TABLET PO SCH (10:55)
[2022-02-16] MEDS: APIXABAN 5 MG TABLET PO SCH (10:55)
[2022-02-16] MEDS: LACTOBACILLUS ACIDOPHILUS 1 TABLET PO SCH (10:55)
[2022-02-16] MEDS: amLODIPine BESYLATE 5 MG TABLET (FP) PO SCH (10:55)
[2022-02-16] MEDS: DOCUSATE SODIUM 100 MG CAPSULE (FP) PO SCH (10:56)
[2022-02-16] MEDS: FERROUS SO4 325 MG TABLET (FP) PO SCH (10:56)
[2022-02-16] MEDS: metoPROLOL SUCCINATE 25 MG TAB.SR.24H (FP) PO SCH (10:56)
[2022-02-16 11:41] VITALS: BP 111/59; TEMP 98
[2022-02-16] MEDS: ARTIFICIAL TEARS (POLYVINYL ALCOHOL) OPTH DROPS OU PRN (12:18)
== END 2022-02-16 14:18 | disposition home or self-care (01) | DRG 641 ==
LOC: JER 10:04 → INTOOBSV 13:11 → UNDOADMOB 13:11 → JERBED 13:11 → J4W 16:37 → OBSVTOIN 02-13 13:07
PROVIDERS: ADMIT Internal Medicine; ATTEND Internal Medicine
DX: E87.1 Hypo-osmolality and hyponatremia (principal); I50.32 Chronic diastolic (congestive) heart failure; I48.92 Unspecified atrial flutter; N39.0 Urinary tract infection, site not specified; E87.6 Hypokalemia; G47.33 Obstructive sleep apnea (adult) (pediatric); I10 Essential (primary) hypertension; I27.20 Pulmonary hypertension, unspecified; D64.9 Anemia, unspecified; K59.00 Constipation, unspecified; R00.1 Bradycardia, unspecified
CPT/HCPCS: 36415; 71045-TC-FY; 80048; 80053; 81003; 83735; 84100; 84439; 84443; 84484; 85025; 87086; 87186; 93005; 93010; 93306-TC; 97116-GP; 97161-GP; 99285-25; C9803-CS; G0378; U0003; U0005

== ENCOUNTER 2023-05-11 09:40 | Inpatient (IN) | payer OTHER ==
[2023-05-11] MEDS ORDERED: methylPREDNISolone NA SUCC 125 MG/2 ML VIAL IVPUSH ONE (09:56)
[2023-05-11] MEDS ORDERED: methylPREDNISolone NA SUCC 125 MG/2 ML VIAL ONE (10:20)
[2023-05-11] MEDS ORDERED: ALBUTEROL SO4 2.5/IPRATROPIUM 0.5 INH SOL 3 ML VIAL.NEB. NEB ONE (10:20)
[2023-05-11 10:39] LABS: BASO % 0.4 % (0-2.0); EOS % 0.2 % (0-4.5); HEMATOCRIT 37.9 % (32.4-45.2); LYMPH % 3.6 % (8-40); MCH 23.5 pg (25.7-33.7); MCHC 31.7 g/dl (32.0-36.0); MEAN CELL VOLUME 74.1 fl (80-96); MEAN PLT VOLUME 9.1 fl (7.5-11.1); MONO % 5.3 % (3.8-10.2); NEUT % 90.5 % (42.8-82.8); PLATELET COUNT 245 10^3/uL (134-434); RBC 5.12 M/mm3 (3.60-5.2); WHITE BLOOD COUNT 13.4 K/mm3 (4.0-10.0)
[2023-05-11 10:42] LABS: VENOUS BASE EXCESS 6.3 mmol/L (-2-2); VENOUS O2 SATURATION 87.9 % (70-80); VENOUS PCO2 46.9 mmHg (38-52); VENOUS PH 7.444 (7.310-7.410)
[2023-05-11 10:46] LABS: INR 2.15 (0.83-1.09); PROTHROMBIN TIME (PATIENT) 24.7 SEC (9.7-13.0)
[2023-05-11 11:00] LABS: POTASSIUM 3.4 mmol/L (3.5-5.1)
[2023-05-11 11:02] LABS: CALCIUM 9.5 mg/dL (8.5-10.1)
[2023-05-11 11:03] LABS: ALBUMIN 3.6 g/dl (3.4-5.0); BLOOD UREA NITROGEN 38.1 mg/dL (7-18); MAGNESIUM 2.5 mg/dL (1.8-2.4)
[2023-05-11 11:06] LABS: CREATININE 0.9 mg/dL (0.55-1.3)
[2023-05-11 11:07] LABS: TOT PROT 7.3 g/dl (6.4-8.2)
[2023-05-11 11:08] LABS: BILIRUBIN,TOTAL 0.6 mg/dL (0.2-1)
[2023-05-11 11:10] LABS: LACTIC ACID 2.5 mmol/L (0.4-2.0)
[2023-05-11 11:11] LABS: N-TERMINAL BNP 1592.8 pg/ml (5-450)
[2023-05-11] MEDS ORDERED: PIPERACILLIN/TAZOB 4.5 GM 4.5 GM in DEXTROSE 5%-WATER 100 ML IVPB ONE (11:21)
[2023-05-11] MEDS ORDERED: VANCOMYCIN 1 GM in D5W (PRE-DOCKED) 1,000 MG/250 ML (RESTRICTED TO ID ONLY IVPB ONE (11:21)
[2023-05-11] MEDS ORDERED: SODIUM CHLORIDE 0.9% 500 ML INFUS.BAG IV ONE (11:22)
[2023-05-11] MEDS: ALBUTEROL SO4 2.5/IPRATROPIUM 0.5 INH SOL 3 ML VIAL.NEB. NEB SCH ×5 (11:30→20:56)
[2023-05-11] MEDS ORDERED: PIPERACILLIN/TAZOB 4.5 GM 4.5 GM/100 ML BAG IVPB ONE (11:34)
[2023-05-11] MEDS ORDERED: VANCOMYCIN/WATER FOR INJ (PEG) 1,000 MG/200 ML BAG IVPB ONE ×2 (11:34→11:35)
[2023-05-11] MEDS ORDERED: POTASSIUM CHLORIDE ORAL LIQUID 20 MEQ/15 ML PO ONE (12:00)
[2023-05-11] MEDS ORDERED: ACETAMINOPHEN 325 MG TABLET (FP) PO PRN (12:06)
[2023-05-11] MEDS ORDERED: BISACODYL 5 MG TABLET.DR (FP) PO PRN (12:09)
[2023-05-11 12:15] LABS: EPI CELLS 1 /uL (0-25.1); HYALINE CASTS 0 /uL (0-3.1); PH,URINE 5.5 (5.0-8.0); URINE APPEARANCE CLEAR; URINE BACTERIA >9,000 /uL (0-1359); URINE BILIRUBIN NEGATIVE (NEGATIVE); URINE COLOR YELLOW; URINE GLUCOSE (UA) 2+ (NEGATIVE); URINE KETONE NEGATIVE (NEGATIVE); URINE LEUK ESTERASE 1+ (NEGATIVE); URINE NITRITE NEGATIVE (NEGATIVE); URINE PROTEIN NEGATIVE (NEGATIVE); URINE RBC 8 /uL (0-23.9); URINE UROBILINOGEN 0.2 mg/dL (0.2-1.0); URINE WBC 41 /uL (0-25.8)
[2023-05-11 15:00] VITALS: BMI 29.3
[2023-05-11] MEDS: DOXYCYCLINE INJECTION 100 MG in DEXTROSE 5%-WATER 100 ML IVPB SCH (22:25)
[2023-05-11] MEDS: APIXABAN 5 MG TABLET PO SCH (22:25)
[2023-05-12] MEDS: ALBUTEROL SO4 2.5/IPRATROPIUM 0.5 INH SOL 3 ML VIAL.NEB. NEB SCH ×2 (07:48→11:45)
[2023-05-12] MEDS: APIXABAN 5 MG TABLET PO SCH ×2 (10:44→21:23)
[2023-05-12] MEDS: TORSEMIDE 100 MG TABLET PO SCH (10:45)
[2023-05-12] MEDS: SPIRONOLACTONE 25 MG TABLET PO SCH (10:45)
[2023-05-12] MEDS: CEFTRIAXONE 1 GM in DEXTROSE 5%-WATER - 50 ML IVPB SCH (10:45)
[2023-05-12] MEDS: DOXYCYCLINE INJECTION 100 MG in DEXTROSE 5%-WATER 100 ML IVPB SCH ×2 (10:46→21:24)
[2023-05-12 11:10] LABS: HEMATOCRIT 35.2 % (32.4-45.2); HEMOGLOBIN 11.5 GM/dL (10.7-15.3); MCH 23.8 pg (25.7-33.7); MCHC 32.7 g/dl (32.0-36.0); MEAN CELL VOLUME 72.8 fl (80-96); MEAN PLT VOLUME 9.2 fl (7.5-11.1); PLATELET COUNT 222 10^3/uL (134-434); RBC 4.84 M/mm3 (3.60-5.2); RDW 20.3 % (11.6-15.6); WHITE BLOOD COUNT 10.7 K/mm3 (4.0-10.0)
[2023-05-12 11:22] LABS: POTASSIUM 4.1 mmol/L (3.5-5.1)
[2023-05-12 11:24] LABS: CALCIUM 9.2 mg/dL (8.5-10.1)
[2023-05-12 11:25] LABS: BLOOD UREA NITROGEN 46.7 mg/dL (7-18); MAGNESIUM 2.5 mg/dL (1.8-2.4)
[2023-05-12 11:28] LABS: CREATININE 0.9 mg/dL (0.55-1.3); PHOSPHOROUS 2.9 mg/dL (2.5-4.9)
[2023-05-12 11:32] LABS: LACTIC ACID 2.8 mmol/L (0.4-2.0)
[2023-05-12] MEDS ORDERED: SODIUM CHLORIDE 1,000 ML IV STA ×2 (13:42→13:43)
[2023-05-12] MEDS ORDERED: MAGNESIUM SULF 50% (8.12 MEQ/2 ML-1 GM VIAL) IVPB ONE (14:30)
[2023-05-13] MEDS: SPIRONOLACTONE 25 MG TABLET PO SCH (09:02)
[2023-05-13] MEDS: CEFTRIAXONE 1 GM in DEXTROSE 5%-WATER - 50 ML IVPB SCH (09:03)
[2023-05-13] MEDS: APIXABAN 5 MG TABLET PO SCH ×2 (09:03→21:34)
[2023-05-13] MEDS: TORSEMIDE 100 MG TABLET PO SCH (09:04)
[2023-05-13] MEDS: ALBUTEROL SO4 HFA INHALER IH PRN (09:07)
[2023-05-13 09:48] LABS: BASO % 0.5 % (0-2.0); EOS % 1.5 % (0-4.5); HEMATOCRIT 38.9 % (32.4-45.2); HEMOGLOBIN 12.4 GM/dL (10.7-15.3); LYMPH % 6.7 % (8-40); MCH 23.6 pg (25.7-33.7); MCHC 31.8 g/dl (32.0-36.0); MEAN CELL VOLUME 74.2 fl (80-96); MEAN PLT VOLUME 9.6 fl (7.5-11.1); MONO % 7.4 % (3.8-10.2); NEUT % 83.9 % (42.8-82.8); PLATELET COUNT 263 10^3/uL (134-434); RBC 5.25 M/mm3 (3.60-5.2); RDW 20.4 % (11.6-15.6); WHITE BLOOD COUNT 12.4 K/mm3 (4.0-10.0)
[2023-05-13 10:01] LABS: POTASSIUM 4.1 mmol/L (3.5-5.1)
[2023-05-13 10:09] LABS: CALCIUM 9.4 mg/dL (8.5-10.1)
[2023-05-13 10:10] LABS: ALBUMIN 3.4 g/dl (3.4-5.0); BLOOD UREA NITROGEN 28.6 mg/dL (7-18)
[2023-05-13 10:13] LABS: CREATININE 0.8 mg/dL (0.55-1.3)
[2023-05-13 10:14] LABS: BILIRUBIN,TOTAL 1.2 mg/dL (0.2-1); TOT PROT 6.8 g/dl (6.4-8.2)
[2023-05-13] MEDS: DOXYCYCLINE INJECTION 100 MG in DEXTROSE 5%-WATER 100 ML IVPB SCH ×2 (11:11→21:34)
[2023-05-13] MEDS: ALBUTEROL SO4 2.5/IPRATROPIUM 0.5 INH SOL 3 ML VIAL.NEB. NEB SCH ×2 (15:39→20:19)
[2023-05-14] MEDS: ALBUTEROL SO4 2.5/IPRATROPIUM 0.5 INH SOL 3 ML VIAL.NEB. NEB SCH ×4 (08:11→20:13)
[2023-05-14 10:36] LABS: BASO % 0.6 % (0-2.0); EOS % 2.6 % (0-4.5); HEMOGLOBIN 12.1 GM/dL (10.7-15.3); LYMPH % 8.8 % (8-40); MCH 23.1 pg (25.7-33.7); MCHC 30.9 g/dl (32.0-36.0); MEAN CELL VOLUME 74.9 fl (80-96); MEAN PLT VOLUME 9.1 fl (7.5-11.1); MONO % 7.3 % (3.8-10.2); NEUT % 80.7 % (42.8-82.8); PLATELET COUNT 244 10^3/uL (134-434); RBC 5.21 M/mm3 (3.60-5.2); RDW 20.4 % (11.6-15.6); WHITE BLOOD COUNT 9.5 K/mm3 (4.0-10.0)
[2023-05-14 10:48] LABS: POTASSIUM 3.6 mmol/L (3.5-5.1)
[2023-05-14] MEDS: APIXABAN 5 MG TABLET PO SCH ×2 (10:50→22:38)
[2023-05-14] MEDS: CEFTRIAXONE 1 GM in DEXTROSE 5%-WATER - 50 ML IVPB SCH (10:50)
[2023-05-14] MEDS: SPIRONOLACTONE 25 MG TABLET PO SCH (10:50)
[2023-05-14] MEDS: TORSEMIDE 100 MG TABLET PO SCH (10:50)
[2023-05-14 10:55] LABS: CALCIUM 9.3 mg/dL (8.5-10.1)
[2023-05-14 10:56] LABS: ALBUMIN 3.2 g/dl (3.4-5.0); BLOOD UREA NITROGEN 24.8 mg/dL (7-18)
[2023-05-14 10:59] LABS: CREATININE 0.9 mg/dL (0.55-1.3)
[2023-05-14 11:00] LABS: BILIRUBIN,TOTAL 0.8 mg/dL (0.2-1)
[2023-05-14 11:01] LABS: TOT PROT 6.5 g/dl (6.4-8.2)
[2023-05-14] MEDS: DOXYCYCLINE INJECTION 100 MG in DEXTROSE 5%-WATER 100 ML IVPB SCH ×2 (13:20→22:38)
[2023-05-14] MEDS: ALBUTEROL SO4 HFA INHALER IH PRN (22:39)
[2023-05-15] MEDS ORDERED: ALBUTEROL SO4 2.5/IPRATROPIUM 0.5 INH SOL 3 ML VIAL.NEB. NEB PRN (07:51)
[2023-05-15] MEDS: APIXABAN 5 MG TABLET PO SCH ×2 (09:22→21:15)
[2023-05-15] MEDS: CEFTRIAXONE 1 GM in DEXTROSE 5%-WATER - 50 ML IVPB SCH (09:23)
[2023-05-15] MEDS: SPIRONOLACTONE 25 MG TABLET PO SCH (09:23)
[2023-05-15] MEDS: DOXYCYCLINE INJECTION 100 MG in DEXTROSE 5%-WATER 100 ML IVPB SCH ×2 (09:24→21:15)
[2023-05-15 10:33] LABS: BASO % 0.7 % (0-2.0); HEMATOCRIT 37.8 % (32.4-45.2); HEMOGLOBIN 11.8 GM/dL (10.7-15.3); LYMPH % 7.7 % (8-40); MCH 23.3 pg (25.7-33.7); MCHC 31.2 g/dl (32.0-36.0); MEAN CELL VOLUME 74.6 fl (80-96); MEAN PLT VOLUME 9.6 fl (7.5-11.1); MONO % 7.7 % (3.8-10.2); NEUT % 80.9 % (42.8-82.8); PLATELET COUNT 239 10^3/uL (134-434); RBC 5.07 M/mm3 (3.60-5.2); RDW 20.5 % (11.6-15.6); WHITE BLOOD COUNT 10.9 K/mm3 (4.0-10.0)
[2023-05-15 10:41] LABS: POTASSIUM 3.8 mmol/L (3.5-5.1)
[2023-05-15 10:43] LABS: CALCIUM 9.5 mg/dL (8.5-10.1)
[2023-05-15 10:44] LABS: ALBUMIN 3.2 g/dl (3.4-5.0); BLOOD UREA NITROGEN 24.3 mg/dL (7-18)
[2023-05-15 10:47] LABS: CREATININE 0.8 mg/dL (0.55-1.3)
[2023-05-15 10:48] LABS: BILIRUBIN,TOTAL 0.6 mg/dL (0.2-1)
[2023-05-15 10:49] LABS: TOT PROT 6.6 g/dl (6.4-8.2)
[2023-05-15] MEDS: TORSEMIDE 100 MG TABLET PO SCH (11:39)
[2023-05-15 13:19] LABS: ANISOCYTOSIS 2+; MACROCYTOSIS 0; OVALOCYTE 2+; TARGET CELLS 2+
[2023-05-15] MEDS: ALBUTEROL SO4 2.5/IPRATROPIUM 0.5 INH SOL 3 ML VIAL.NEB. NEB SCH ×2 (16:58→20:05)
[2023-05-15] MEDS: SENNOSIDES 8.6MG TABLET (FP) PO SCH (21:15)
[2023-05-16] MEDS: ALBUTEROL SO4 2.5/IPRATROPIUM 0.5 INH SOL 3 ML VIAL.NEB. NEB SCH ×4 (07:46→20:05)
[2023-05-16] MEDS: SENNOSIDES 8.6MG TABLET (FP) PO SCH ×2 (10:16→21:59)
[2023-05-16 10:17] LABS: BASO % 0.4 % (0-2.0); EOS % 1.6 % (0-4.5); HEMATOCRIT 39.3 % (32.4-45.2); HEMOGLOBIN 12.3 GM/dL (10.7-15.3); LYMPH % 6.9 % (8-40); MCH 23.4 pg (25.7-33.7); MCHC 31.2 g/dl (32.0-36.0); MEAN PLT VOLUME 9.5 fl (7.5-11.1); MONO % 6.8 % (3.8-10.2); NEUT % 84.3 % (42.8-82.8); PLATELET COUNT 245 10^3/uL (134-434); RBC 5.24 M/mm3 (3.60-5.2); RDW 20.9 % (11.6-15.6)
[2023-05-16] MEDS: POLYETHYLENE GLYCOL (HEALTHYLAX) 3350 17 GM PACKET PO SCH (10:17)
[2023-05-16] MEDS: SPIRONOLACTONE 25 MG TABLET PO SCH (10:17)
[2023-05-16] MEDS: APIXABAN 5 MG TABLET PO SCH ×2 (10:17→21:59)
[2023-05-16] MEDS: DOXYCYCLINE INJECTION 100 MG in DEXTROSE 5%-WATER 100 ML IVPB SCH ×2 (10:17→22:56)
[2023-05-16] MEDS: CEFTRIAXONE 1 GM in DEXTROSE 5%-WATER - 50 ML IVPB SCH (10:18)
[2023-05-16] MEDS: TORSEMIDE 100 MG TABLET PO SCH (10:23)
[2023-05-16 10:33] LABS: POTASSIUM 3.2 mmol/L (3.5-5.1)
[2023-05-16 10:36] LABS: ALBUMIN 3.1 g/dl (3.4-5.0); BLOOD UREA NITROGEN 23.2 mg/dL (7-18)
[2023-05-16 10:39] LABS: CREATININE 0.9 mg/dL (0.55-1.3)
[2023-05-16 10:40] LABS: BILIRUBIN,TOTAL 0.6 mg/dL (0.2-1); TOT PROT 6.6 g/dl (6.4-8.2)
[2023-05-16] MEDS ORDERED: POTASSIUM CHLORIDE TABS 20 MEQ TABLET.ER (FP) PO ONE (12:30)
[2023-05-16] MEDS: methylPREDNISolone NA SUCC 40 MG/1 ML VIAL IVPUSH SCH ×2 (14:20→17:50)
[2023-05-16 15:51] VITALS: RESP 18
[2023-05-17] MEDS: methylPREDNISolone NA SUCC 40 MG/1 ML VIAL IVPUSH SCH ×2 (01:26→10:18)
[2023-05-17] MEDS: ALBUTEROL SO4 2.5/IPRATROPIUM 0.5 INH SOL 3 ML VIAL.NEB. NEB SCH ×2 (07:57→11:00)
[2023-05-17 09:29] LABS: BASO % 0.2 % (0-2.0); EOS % 0.4 % (0-4.5); HEMATOCRIT 38.9 % (32.4-45.2); HEMOGLOBIN 12.5 GM/dL (10.7-15.3); LYMPH % 8.1 % (8-40); MCH 23.5 pg (25.7-33.7); MCHC 32.1 g/dl (32.0-36.0); MEAN CELL VOLUME 73.2 fl (80-96); MEAN PLT VOLUME 8.9 fl (7.5-11.1); NEUT % 84.3 % (42.8-82.8); PLATELET COUNT 268 10^3/uL (134-434); RBC 5.32 M/mm3 (3.60-5.2); RDW 20.9 % (11.6-15.6); WHITE BLOOD COUNT 13.9 K/mm3 (4.0-10.0)
[2023-05-17 09:39] LABS: POTASSIUM 4.4 mmol/L (3.5-5.1)
[2023-05-17 09:43] LABS: CALCIUM 9.7 mg/dL (8.5-10.1)
[2023-05-17 09:44] LABS: ALBUMIN 3.3 g/dl (3.4-5.0); BLOOD UREA NITROGEN 31.2 mg/dL (7-18); MAGNESIUM 2.4 mg/dL (1.8-2.4)
[2023-05-17 09:47] LABS: CREATININE 0.7 mg/dL (0.55-1.3); PHOSPHOROUS 3.8 mg/dL (2.5-4.9)
[2023-05-17 09:48] LABS: TOT PROT 6.9 g/dl (6.4-8.2)
[2023-05-17 09:49] LABS: BILIRUBIN,TOTAL 0.6 mg/dL (0.2-1)
[2023-05-17 10:05] VITALS: BP 120/80
[2023-05-17 10:06] VITALS: PULSE 84; TEMP 98.6
[2023-05-17] MEDS: APIXABAN 5 MG TABLET PO SCH (10:14)
[2023-05-17] MEDS: SENNOSIDES 8.6MG TABLET (FP) PO SCH (10:14)
[2023-05-17] MEDS: SPIRONOLACTONE 25 MG TABLET PO SCH (10:14)
[2023-05-17] MEDS: TORSEMIDE 100 MG TABLET PO SCH (10:15)
[2023-05-17] MEDS: POLYETHYLENE GLYCOL (HEALTHYLAX) 3350 17 GM PACKET PO SCH (10:17)
[2023-05-17] MEDS: DOXYCYCLINE INJECTION 100 MG in DEXTROSE 5%-WATER 100 ML IVPB SCH (10:18)
[2023-05-17] MEDS: CEFTRIAXONE 1 GM in DEXTROSE 5%-WATER - 50 ML IVPB SCH (10:18)
== END 2023-05-17 11:46 | disposition home or self-care (01) | DRG 190 ==
LOC: JER 09:40 → JERBED 11:33 → J5S 12:56
PROVIDERS: ADMIT Internal Medicine
DX: J44.0 Chronic obstructive pulmonary disease with (acute) lower respiratory infection (principal); J18.9 Pneumonia, unspecified organism; J98.11 Atelectasis; I47.1 Supraventricular tachycardia; I11.0 Hypertensive heart disease with heart failure; I50.32 Chronic diastolic (congestive) heart failure; J44.1 Chronic obstructive pulmonary disease with (acute) exacerbation; I48.91 Unspecified atrial fibrillation; G47.33 Obstructive sleep apnea (adult) (pediatric); E87.6 Hypokalemia; I27.20 Pulmonary hypertension, unspecified; E87.70 Fluid overload, unspecified; K44.9 Diaphragmatic hernia without obstruction or gangrene; I08.1 Rheumatic disorders of both mitral and tricuspid valves; L93.2 Other local lupus erythematosus; Z95.0 Presence of cardiac pacemaker
CPT/HCPCS: 0241U-QW; 36415; 71045-TC-FY; 80048; 80053; 81003; 82803; 83605; 83735; 83880; 84100; 85025; 85027; 85610; 85730; 86160; 87040; 87086; 87186; 93005; 93010; 93306-TC; 94640; 94761; 97116-GP; 97162-GP; 99285-25

== ENCOUNTER 2023-12-06 11:26 | Day surgery (SDC) | payer OTHER ==
[2023-12-06] MEDS: IRON SUCROSE INJECTION 200 MG in SODIUM CHLORIDE 100 ML IVPB ONE (12:15)
[2023-12-06 17:33] VITALS: TEMP 97.3
[2023-12-06 17:35] VITALS: BP 116/72; PULSE 82; RESP 20
== END 2023-12-06 13:35 | disposition home or self-care (01) ==
LOC: JONCNONCHE 11:26 → J7W 11:27 → JONCNONCHE 13:35
PROVIDERS: ATTEND Internal Medicine Hematology & Oncology
PROC: 3E033GC Introduction of Other Therapeutic Substance into Peripheral Vein, Percutaneous Approach (ICD-10-PCS; principal; 2023-12-06)
DX: E61.1 Iron deficiency (principal)
CPT/HCPCS: 96365; J1756

== ENCOUNTER 2023-12-13 09:40 | Day surgery (SDC) | payer OTHER ==
[2023-12-13] MEDS: IRON SUCROSE INJECTION 200 MG in SODIUM CHLORIDE 100 ML IVPB ONE (10:16)
[2023-12-13 18:05] VITALS: RESP 18; TEMP 97.8
[2023-12-13 18:07] VITALS: BP 125/62; PULSE 81
== END 2023-12-13 11:15 | disposition home or self-care (01) ==
LOC: JONCNONCHE 09:40 → J7W 09:40 → JONCNONCHE 11:15
PROVIDERS: ATTEND Internal Medicine Hematology & Oncology
PROC: 3E033GC Introduction of Other Therapeutic Substance into Peripheral Vein, Percutaneous Approach (ICD-10-PCS; principal; 2023-12-13)
DX: E61.1 Iron deficiency (principal)
CPT/HCPCS: 96365; J1756

== ENCOUNTER 2023-12-20 09:31 | Day surgery (SDC) | payer OTHER ==
[2023-12-20] MEDS: IRON SUCROSE INJECTION 200 MG in SODIUM CHLORIDE 100 ML IVPB ONE (10:12)
[2023-12-20 10:28] VITALS: RESP 20; TEMP 97.8
[2023-12-20 11:07] VITALS: BP 113/57; PULSE 81
== END 2023-12-20 11:10 | disposition home or self-care (01) ==
LOC: JONCNONCHE 09:31 → J7W 09:32 → JONCNONCHE 11:10
PROVIDERS: ATTEND Internal Medicine Hematology & Oncology
PROC: 3E033GC Introduction of Other Therapeutic Substance into Peripheral Vein, Percutaneous Approach (ICD-10-PCS; principal; 2023-12-20)
DX: E61.1 Iron deficiency (principal)
CPT/HCPCS: 96365; J1756

== ENCOUNTER 2023-12-27 10:01 | Day surgery (SDC) | payer OTHER ==
[2023-12-27] MEDS: IRON SUCROSE INJECTION 200 MG in SODIUM CHLORIDE 100 ML IVPB ONE (10:16)
[2023-12-27 10:28] VITALS: RESP 20; TEMP 97.7
[2023-12-27 10:53] VITALS: BP 102/52; PULSE 81
== END 2023-12-27 11:30 | disposition home or self-care (01) ==
LOC: JONCNONCHE 10:01 → J7W 10:02 → JONCNONCHE 11:30
PROVIDERS: ATTEND Internal Medicine Hematology & Oncology
PROC: 3E033GC Introduction of Other Therapeutic Substance into Peripheral Vein, Percutaneous Approach (ICD-10-PCS; principal; 2023-12-27)
DX: D50.9 Iron deficiency anemia, unspecified (principal)
CPT/HCPCS: 96365; J1756

== ENCOUNTER 2024-01-02 09:40 | Day surgery (SDC) | payer OTHER ==
[2024-01-02] MEDS: IRON SUCROSE INJECTION 200 MG in SODIUM CHLORIDE 100 ML IVPB ONE (10:05)
[2024-01-02 10:41] VITALS: RESP 20; TEMP 97.5
[2024-01-02 10:43] VITALS: BP 112/50; PULSE 79
== END 2024-01-02 11:15 | disposition home or self-care (01) ==
LOC: J7W 09:40 → JONCNONCHE 09:40
PROVIDERS: ATTEND Internal Medicine Hematology & Oncology
PROC: 3E033GC Introduction of Other Therapeutic Substance into Peripheral Vein, Percutaneous Approach (ICD-10-PCS; principal; 2024-01-02)
DX: D64.9 Anemia, unspecified (principal); D69.3 Immune thrombocytopenic purpura; E53.8 Deficiency of other specified B group vitamins; I48.19 Other persistent atrial fibrillation
CPT/HCPCS: 96365; J1756

== ENCOUNTER 2024-02-02 09:27 | Inpatient (IN) | payer OTHER ==
[2024-02-02 10:39] LABS: EPI CELLS 4 /uL (0-25.1); HYALINE CASTS 0 /uL (0-3.1); PH,URINE 6.5 (5.0-8.0); URINE APPEARANCE CLEAR; URINE BACTERIA >9,000 /uL (0-1359); URINE BILIRUBIN NEGATIVE (NEGATIVE); URINE COLOR YELLOW; URINE GLUCOSE (UA) 2+ (NEGATIVE); URINE KETONE NEGATIVE (NEGATIVE); URINE LEUK ESTERASE 1+ (NEGATIVE); URINE NITRITE POSITIVE (NEGATIVE); URINE PROTEIN NEGATIVE (NEGATIVE); URINE RBC 15 /uL (0-23.9); URINE UROBILINOGEN 0.2 mg/dL (0.2-1.0); URINE WBC 52 /uL (0-25.8)
[2024-02-02 11:40] LABS: BASO % 0.4 % (0-2.0); EOS % 0.2 % (0-4.5); HEMATOCRIT 45.4 % (32.4-45.2); HEMOGLOBIN 14.9 GM/dL (10.7-15.3); LYMPH % 6.7 % (8-40); MCH 26.8 pg (25.7-33.7); MCHC 32.9 g/dl (32.0-36.0); MEAN CELL VOLUME 81.5 fl (80-96); MEAN PLT VOLUME 8.4 fl (7.5-11.1); MONO % 7.5 % (3.8-10.2); NEUT % 85.2 % (42.8-82.8); PLATELET COUNT 180 10^3/uL (134-434); RBC 5.57 M/mm3 (3.60-5.2); RDW 24.8 % (11.6-15.6); WHITE BLOOD COUNT 14.3 K/mm3 (4.0-10.0)
[2024-02-02 11:47] LABS: INR 2.28 (0.83-1.09); PROTHROMBIN TIME (PATIENT) 26.2 SEC (9.7-13.0)
[2024-02-02 11:50] LABS: ACTIVATED PTT 93.6 SECONDS (25.2-36.5)
[2024-02-02 11:54] LABS: POTASSIUM 4.3 mmol/L (3.5-5.1)
[2024-02-02 11:57] LABS: ALBUMIN 3.4 g/dl (3.4-5.0); BLOOD UREA NITROGEN 22.9 mg/dL (7-18); MAGNESIUM 2.6 mg/dL (1.8-2.4)
[2024-02-02] MEDS ORDERED: FAMOTIDINE 20 MG/50 ML IVPB 20 MG/50 ML MG IVPB ONE (11:58)
[2024-02-02] MEDS ORDERED: ACETAMINOPHEN INJECTION 100 ML IVPB ONE (11:58)
[2024-02-02] MEDS ORDERED: CEFTRIAXONE 1 GM/50 ML BAG ONE (11:58)
[2024-02-02 12:00] LABS: CREATININE 0.7 mg/dL (0.55-1.3)
[2024-02-02] MEDS: ACETAMINOPHEN 1000 MG/100 ML BAG IVPB ONE (12:01)
[2024-02-02 12:02] LABS: BILIRUBIN,TOTAL 2.1 mg/dL (0.2-1); TOT PROT 6.9 g/dl (6.4-8.2)
[2024-02-02] MEDS: CEFTRIAXONE 1,000 MG in DEXTROSE 5%-WATER - 50 ML IVPB ONE (12:02)
[2024-02-02] MEDS: FAMOTIDINE 20 MG/50 ML IVPB 20 MG/50 ML MG IVPB ONE (12:02)
[2024-02-02 12:18] LABS: ANISOCYTOSIS 3+; MACROCYTOSIS 0; OVALOCYTE 1+
[2024-02-02 12:58] LABS: BILIRUBIN,DIRECT 0.5 mg/dL (0.0-0.2)
[2024-02-02] MEDS ORDERED: ONDANSETRON 4 MG/2 ML VIAL ONE (15:34)
[2024-02-02] MEDS: ONDANSETRON 4 MG/2 ML VIAL IVPUSH ONE (15:42)
[2024-02-02] MEDS ORDERED: ACETAMINOPHEN 1000 MG/100 ML BAG IVPB PRN (16:58)
[2024-02-02] MEDS ORDERED: ALBUTEROL SO4 HFA INHALER IH PRN (17:00)
[2024-02-02 17:32] VITALS: BMI 32.5
[2024-02-02] MEDS: APIXABAN 5 MG TABLET PO SCH (21:47)
[2024-02-03 03:35] VITALS: RESP 18
[2024-02-03] MEDS: ARTIFICIAL TEARS OPHTHALMIC DROPS OU PRN (06:32)
[2024-02-03] MEDS: CEFTRIAXONE 1 GM in DEXTROSE 5%-WATER - 50 ML IVPB SCH (08:28)
[2024-02-03] MEDS: SPIRONOLACTONE 25 MG TABLET PO SCH (09:15)
[2024-02-03] MEDS: TORSEMIDE 100 MG TABLET PO SCH (09:16)
[2024-02-03 09:29] LABS: BASO % 0.4 % (0-2.0); EOS % 0.9 % (0-4.5); HEMATOCRIT 42.9 % (32.4-45.2); HEMOGLOBIN 14.3 GM/dL (10.7-15.3); LYMPH % 7.3 % (8-40); MCH 27.2 pg (25.7-33.7); MCHC 33.3 g/dl (32.0-36.0); MEAN CELL VOLUME 81.8 fl (80-96); MEAN PLT VOLUME 8.7 fl (7.5-11.1); NEUT % 84.4 % (42.8-82.8); PLATELET COUNT 158 10^3/uL (134-434); RBC 5.25 M/mm3 (3.60-5.2); RDW 24.5 % (11.6-15.6); WHITE BLOOD COUNT 10.2 K/mm3 (4.0-10.0)
[2024-02-03 09:54] LABS: POTASSIUM 3.7 mmol/L (3.5-5.1)
[2024-02-03 09:56] LABS: ALBUMIN 2.9 g/dl (3.4-5.0); BLOOD UREA NITROGEN 20.2 mg/dL (7-18)
[2024-02-03 09:59] LABS: CREATININE 0.7 mg/dL (0.55-1.3)
[2024-02-03 10:07] LABS: BILIRUBIN,DIRECT 0.4 mg/dL (0.0-0.2)
[2024-02-03] MEDS: POLYETHYLENE GLYCOL (HEALTHYLAX) 3350 17 GM PACKET PO SCH (17:25)
[2024-02-03] MEDS: TORSEMIDE 100 MG TABLET PO ONE (17:32)
[2024-02-03] MEDS ORDERED: TORSEMIDE 100 MG TABLET PO ONE (22:00)
[2024-02-04 08:19] LABS: BASO % 0.8 % (0-2.0); EOS % 2.1 % (0-4.5); HEMATOCRIT 43.1 % (32.4-45.2); MCH 26.8 pg (25.7-33.7); MCHC 32.5 g/dl (32.0-36.0); MEAN CELL VOLUME 82.3 fl (80-96); MEAN PLT VOLUME 8.8 fl (7.5-11.1); MONO % 8.6 % (3.8-10.2); NEUT % 78.5 % (42.8-82.8); PLATELET COUNT 153 10^3/uL (134-434); RBC 5.23 M/mm3 (3.60-5.2); RDW 24.1 % (11.6-15.6); WHITE BLOOD COUNT 8.2 K/mm3 (4.0-10.0)
[2024-02-04 08:43] LABS: CHLORIDE 97 mmol/L (98-107); SODIUM 137 mmol/L (136-145)
[2024-02-04 08:54] LABS: GLUCOSE,RANDOM 95 mg/dL (74-106); SGOT/AST 12 U/L (15-37)
[2024-02-04 08:55] LABS: BILIRUBIN,TOTAL 0.6 mg/dL (0.2-1); TOT PROT 5.8 g/dl (6.4-8.2)
[2024-02-04 08:56] LABS: ALK PHOS 106 U/L (45-117); BLOOD UREA NITROGEN 18.9 mg/dL (7-18); IRON SERUM 26 ug/dL (50-175)
[2024-02-04 08:57] LABS: ALBUMIN 2.9 g/dl (3.4-5.0); CALCIUM 8.5 mg/dL (8.5-10.1); CO2 34 mmol/L (21-32); CREATININE 0.6 mg/dL (0.55-1.3); SGPT/ALT 17 U/L (13-61); TOTAL IRON BINDING CAPACITY 220 ug/dL (250-450)
[2024-02-04 09:08] LABS: ANION GAP 6 mmol/L (4-13); POTASSIUM 2.9 mmol/L (3.5-5.1)
[2024-02-04] MEDS ORDERED: KCL 10 MEQ IVPB 10 MEQ/100 ML INFUS.BAG IVPB SCH (15:30)
[2024-02-04] MEDS: ONDANSETRON 4 MG/2 ML VIAL IVPUSH PRN (16:12)
[2024-02-04] MEDS: POTASSIUM CHLORIDE TABS 20 MEQ TABLET.ER (FP) PO ONE ×2 (16:31→18:11)
[2024-02-05 09:00] LABS: BASO % 1.1 % (0-2.0); EOS % 2.3 % (0-4.5); HEMATOCRIT 41.6 % (32.4-45.2); HEMOGLOBIN 13.9 GM/dL (10.7-15.3); LYMPH % 9.4 % (8-40); MCH 27.5 pg (25.7-33.7); MCHC 33.3 g/dl (32.0-36.0); MEAN CELL VOLUME 82.7 fl (80-96); MEAN PLT VOLUME 8.7 fl (7.5-11.1); MONO % 7.8 % (3.8-10.2); NEUT % 79.4 % (42.8-82.8); PLATELET COUNT 170 10^3/uL (134-434); RBC 5.03 M/mm3 (3.60-5.2); RDW 23.8 % (11.6-15.6); WHITE BLOOD COUNT 6.7 K/mm3 (4.0-10.0)
[2024-02-05 09:06] LABS: INR 2.08 (0.83-1.09)
[2024-02-06 09:04] VITALS: BP 114/66; PULSE 84; TEMP 98.7
== END 2024-02-06 13:50 | disposition home or self-care (01) | DRG 690 ==
LOC: JER 09:27 → JERBED 14:03 → J6S 17:13
PROVIDERS: ADMIT Internal Medicine; ATTEND Internal Medicine
DX: N39.0 Urinary tract infection, site not specified (principal); K57.92 Diverticulitis of intestine, part unspecified, without perforation or abscess without bleeding; I50.32 Chronic diastolic (congestive) heart failure; I44.2 Atrioventricular block, complete; I11.0 Hypertensive heart disease with heart failure; J44.9 Chronic obstructive pulmonary disease, unspecified; L93.0 Discoid lupus erythematosus; I48.91 Unspecified atrial fibrillation; D50.9 Iron deficiency anemia, unspecified; E87.6 Hypokalemia; B96.20 Unspecified Escherichia coli [E. coli] as the cause of diseases classified elsewhere; K59.00 Constipation, unspecified
CPT/HCPCS: 36415; 71045-TC-FY; 74177-TC; 80053; 81003; 82248; 82272; 82378; 82728; 83540; 83550; 83605; 83735; 84132; 85025; 85610; 85730; 86140; 86850; 86900; 86901; 87086; 87186; 93005; 93010; 97116-GP; 97161-GP; 99285-25; J0131

== ENCOUNTER 2024-06-09 11:40 | Emergency (ER) | payer OTHER ==
[2024-06-09 12:09] VITALS: BMI 29.5
[2024-06-09 13:55] LABS: BASO % 0.9 % (0-2.0); EOS % 1.5 % (0-4.5); HEMATOCRIT 43.5 % (32.4-45.2); HEMOGLOBIN 14.7 GM/dL (10.7-15.3); MCH 30.3 pg (25.7-33.7); MCHC 33.8 g/dl (32.0-36.0); MEAN CELL VOLUME 89.7 fl (80-96); MEAN PLT VOLUME 8.4 fl (7.5-11.1); MONO % 7.4 % (3.8-10.2); NEUT % 78.2 % (42.8-82.8); PLATELET COUNT 216 10^3/uL (134-434); RBC 4.85 M/mm3 (3.60-5.2); RDW 15.8 % (11.6-15.6); WHITE BLOOD COUNT 9.9 K/mm3 (4.0-10.0)
[2024-06-09 13:59] LABS: EPI CELLS 0 /uL (0-25.1); HYALINE CASTS 0 /uL (0-3.1); URINE APPEARANCE CLEAR; URINE BACTERIA 8335 /uL (0-1359); URINE BILIRUBIN NEGATIVE (NEGATIVE); URINE COLOR YELLOW; URINE GLUCOSE (UA) 1+ (NEGATIVE); URINE KETONE NEGATIVE (NEGATIVE); URINE LEUK ESTERASE 2+ (NEGATIVE); URINE NITRITE POSITIVE (NEGATIVE); URINE PROTEIN NEGATIVE (NEGATIVE); URINE RBC 19 /uL (0-23.9); URINE WBC 238 /uL (0-25.8)
[2024-06-09 14:15] LABS: POTASSIUM 4.1 mmol/L (3.5-5.1)
[2024-06-09 14:17] LABS: CALCIUM 9.6 mg/dL (8.5-10.1)
[2024-06-09 14:18] LABS: ALBUMIN 3.3 g/dl (3.4-5.0); BLOOD UREA NITROGEN 29.6 mg/dL (7-18)
[2024-06-09 14:21] LABS: CREATININE 0.9 mg/dL (0.55-1.3)
[2024-06-09 14:22] LABS: BILIRUBIN,TOTAL 0.7 mg/dL (0.2-1)
[2024-06-09 14:23] LABS: TOT PROT 6.7 g/dl (6.4-8.2)
[2024-06-09] MEDS ORDERED: ALBUTEROL SO4 2.5/IPRATROPIUM 0.5 INH SOL 3 ML VIAL.NEB. NEB ONE ×2 (14:31→14:32)
[2024-06-09] MEDS ORDERED: CEPHALEXIN MONOHYDRATE 500 MG CAPSULE (UD) ONE (14:31)
[2024-06-09] MEDS: ALBUTEROL SO4 2.5/IPRATROPIUM 0.5 INH SOL 3 ML VIAL.NEB. NEB SCH (14:37)
[2024-06-09] MEDS: CEPHALEXIN MONOHYDRATE 500 MG CAPSULE (UD) PO ONE (14:37)
[2024-06-09 17:05] VITALS: TEMP 97.5
[2024-06-09] MEDS: SODIUM CHLORIDE 0.9% 500 ML INFUS.BAG IV ONE (17:20)
[2024-06-09 18:33] VITALS: BP 124/58; PULSE 87; RESP 16
== END 2024-06-09 21:26 | disposition home or self-care (01) ==
LOC: JER 11:40
PROC: 3E0F7GC Introduction of Other Therapeutic Substance into Respiratory Tract, Via Natural or Artificial Opening (ICD-10-PCS; principal; 2024-06-09)
DX: R35.0 Frequency of micturition (principal); N39.0 Urinary tract infection, site not specified; J44.1 Chronic obstructive pulmonary disease with (acute) exacerbation; R10.30 Lower abdominal pain, unspecified
CPT/HCPCS: 36415; 71046-TC-FY; 74018-TC-FY; 80053; 81003; 82272; 85025; 87086; 87186; 93005; 93010; 99285-25

== ENCOUNTER 2025-01-25 08:51 | Observation (INO) | payer OTHER ==
[2025-01-25] MEDS ORDERED: FAMOTIDINE 20 MG/50 ML IVPB 20 MG/50 ML MG IVPB ONE (09:35)
[2025-01-25] MEDS ORDERED: MAG HYDROX/AL HYDROX/SIMETH 30 ML UNIT-DOSE CUP ONE (09:35)
[2025-01-25] MEDS ORDERED: ACETAMINOPHEN INJECTION 100 ML ONE (09:35)
[2025-01-25 09:40] VITALS: BMI 29.2
[2025-01-25] MEDS: FAMOTIDINE 20 MG/50 ML IVPB 20 MG/50 ML MG IVPB ONE (10:03)
[2025-01-25] MEDS: ACETAMINOPHEN 1000 MG/100 ML BAG IVPB ONE (10:03)
[2025-01-25] MEDS: MAG HYDROX/AL HYDROX/SIMETH 30 ML UNIT-DOSE CUP PO ONE (10:03)
[2025-01-25 10:24] LABS: ABSOLUTE IMMATURE GRANULOCYTES 0.18 x10^3/uL (0.0-0.031); BASOPHILS # 0.05 x10^3/uL (0.01-0.08); EOSINOPHIL % 0.1 % (0.7-5.8); EOSINOPHILS # 0.01 x10^3/uL (0.04-0.36); HEMATOCRIT 44.7 % (34.1-44.9); HEMOGLOBIN 14.7 g/dL (11.2-15.7); MCHC 32.9 g/dl (32.2-35.5); MEAN PLT VOLUME 10.1 fl (9.4-12.3); MONOCYTE # 1.05 x10^3/uL (0.24-0.86); PLATELET COUNT 176 x10^3/uL (182-369); RDW 15.9 % (12.5-17.0)
[2025-01-25] MEDS: SODIUM CHLORIDE 500 ML IV STA (10:43)
[2025-01-25 10:44] LABS: POTASSIUM 3.7 mmol/L (3.5-5.1)
[2025-01-25 10:45] LABS: CALCIUM 9.3 mg/dL (8.5-10.1)
[2025-01-25 10:46] LABS: ALBUMIN 3.4 g/dl (3.4-5.0); BLOOD UREA NITROGEN 21.1 mg/dL (7-18)
[2025-01-25 10:49] LABS: CREATININE 0.9 mg/dL (0.55-1.3)
[2025-01-25 10:51] LABS: BILIRUBIN,TOTAL 1.6 mg/dL (0.2-1); TOT PROT 6.5 g/dl (6.4-8.2)
[2025-01-25 12:41] LABS: EPI CELLS 2 /uL (0-25.1); HYALINE CASTS 0 /uL (0-3.1); PH,URINE 5.5 (5.0-8.0); URINE APPEARANCE CLEAR; URINE BACTERIA >9,000 /uL (0-1359); URINE BILIRUBIN NEGATIVE (NEGATIVE); URINE COLOR YELLOW; URINE GLUCOSE (UA) 1+ (NEGATIVE); URINE KETONE NEGATIVE (NEGATIVE); URINE LEUK ESTERASE 2+ (NEGATIVE); URINE NITRITE NEGATIVE (NEGATIVE); URINE PROTEIN NEGATIVE (NEGATIVE); URINE UROBILINOGEN 0.2 mg/dL (0.2-1.0); URINE WBC 145 /uL (0-25.8)
[2025-01-25 13:52] LABS: URINE RBC 26 /uL (0-23.9)
[2025-01-25] MEDS ORDERED: CEFTRIAXONE 1 G/50 ML PREMIX 50 ML IVPB ONE (14:49)
[2025-01-25] MEDS: CEFTRIAXONE 1 GM in DEXTROSE 5%-WATER - 100 ML IVPB ONE (15:40)
[2025-01-25] MEDS ORDERED: ALBUTEROL SO4 HFA INHALER IH PRN (16:20)
[2025-01-25] MEDS: PIPERACILLIN/TAZOB 3.375 GM 3.375 GM in DEXTROSE 5%-WATER - 50 ML IVPB SCH (17:48)
[2025-01-25] MEDS: TORSEMIDE 100 MG TABLET PO SCH (17:49)
[2025-01-25] MEDS ORDERED: PIPERACILLIN/TAZOB 3.375 GM 3.375 GM in DEXTROSE 5%-WATER - 50 ML IVPB SCH (18:00)
[2025-01-25] MEDS: APIXABAN 5 MG TABLET PO SCH (21:41)
[2025-01-25] MEDS: DONEPEZIL HCL 5 MG TABLET (FP) PO SCH (21:41)
[2025-01-25] MEDS: ONDANSETRON 4 MG/2 ML VIAL IVPUSH ONE (21:41)
[2025-01-26] MEDS: TORSEMIDE 100 MG TABLET PO SCH (06:05)
[2025-01-26] MEDS: EMPAGLIFLOZIN (JARDIANCE) 10 MG TABLET PO SCH (06:52)
[2025-01-26 09:08] LABS: ABSOLUTE IMMATURE GRANULOCYTES 0.11 x10^3/uL (0.0-0.031); BASOPHILS # 0.07 x10^3/uL (0.01-0.08); EOSINOPHIL % 1.1 % (0.7-5.8); EOSINOPHILS # 0.12 x10^3/uL (0.04-0.36); HEMATOCRIT 43.3 % (34.1-44.9); HEMOGLOBIN 13.9 g/dL (11.2-15.7); MCHC 32.1 g/dl (32.2-35.5); MEAN CELL VOLUME 92.3 fl (79.4-94.8); MEAN PLT VOLUME 10.5 fl (9.4-12.3); MONOCYTE # 0.72 x10^3/uL (0.24-0.86); MONOCYTE % 6.9 % (4.7-12.5); PLATELET COUNT 163 x10^3/uL (182-369)
[2025-01-26 09:30] LABS: POTASSIUM 3.5 mmol/L (3.5-5.1)
[2025-01-26 09:37] LABS: ALBUMIN 2.9 g/dl (3.4-5.0); BLOOD UREA NITROGEN 18.8 mg/dL (7-18); CALCIUM 8.7 mg/dL (8.5-10.1); MAGNESIUM 2.4 mg/dL (1.8-2.4)
[2025-01-26 09:41] LABS: CREATININE 0.8 mg/dL (0.55-1.3); PHOSPHOROUS 2.9 mg/dL (2.5-4.9)
[2025-01-26 09:42] LABS: BILIRUBIN,TOTAL 1.8 mg/dL (0.2-1)
[2025-01-26] MEDS: SPIRONOLACTONE 25 MG TABLET PO SCH (09:49)
[2025-01-26] MEDS ORDERED: ENOXAPARIN NA (PORCINE) 40 MG/0.4 ML DISP.SYRIN SQ SCH (10:00)
[2025-01-26] MEDS ORDERED: ACETAMINOPHEN 500 MG TABLET (FP) PO PRN (13:46)
[2025-01-26 15:10] LABS: BILIRUBIN,DIRECT 0.5 mg/dL (0.0-0.2)
[2025-01-26] MEDS: POLYETHYLENE GLYCOL (HEALTHYLAX) 3350 17 GM PACKET PO SCH (17:07)
[2025-01-26] MEDS: INSULIN ASPART SLIDING SCALE (NOVOLOG) 1 VIAL SQ SCH (17:08)
[2025-01-27 06:13] VITALS: RESP 18
[2025-01-27 09:08] LABS: ABSOLUTE IMMATURE GRANULOCYTES 0.09 x10^3/uL (0.0-0.031); BASOPHILS # 0.07 x10^3/uL (0.01-0.08); EOSINOPHIL % 2.2 % (0.7-5.8); EOSINOPHILS # 0.18 x10^3/uL (0.04-0.36); HEMATOCRIT 43.8 % (34.1-44.9); HEMOGLOBIN 13.9 g/dL (11.2-15.7); MCHC 31.7 g/dl (32.2-35.5); MEAN CELL VOLUME 92.8 fl (79.4-94.8); MEAN PLT VOLUME 10.4 fl (9.4-12.3); MONOCYTE # 0.53 x10^3/uL (0.24-0.86); MONOCYTE % 6.5 % (4.7-12.5); PLATELET COUNT 168 x10^3/uL (182-369); RDW 15.8 % (12.5-17.0)
[2025-01-27 09:41] LABS: POTASSIUM 3.1 mmol/L (3.5-5.1)
[2025-01-27 09:45] LABS: BLOOD UREA NITROGEN 16.3 mg/dL (7-18)
[2025-01-27 09:47] LABS: ALBUMIN 2.9 g/dl (3.4-5.0)
[2025-01-27 09:48] LABS: BILIRUBIN,DIRECT 0.3 mg/dL (0.0-0.2)
[2025-01-27 09:51] LABS: CREATININE 0.8 mg/dL (0.55-1.3)
[2025-01-27 09:53] LABS: TOT PROT 6.3 g/dl (6.4-8.2)
[2025-01-27 09:54] LABS: CALCIUM 8.8 mg/dL (8.5-10.1)
[2025-01-27 09:56] LABS: BILIRUBIN,TOTAL 0.8 mg/dL (0.2-1); MAGNESIUM 2.4 mg/dL (1.8-2.4)
[2025-01-27] MEDS: EMPAGLIFLOZIN (JARDIANCE) 10 MG TABLET PO SCH (10:14)
[2025-01-27] MEDS: POTASSIUM CHLORIDE ORAL LIQUID 20 MEQ/15 ML PO ONE ×2 (10:22→13:54)
[2025-01-27] MEDS: KCL 10 MEQ IVPB 10 MEQ/100 ML INFUS.BAG IVPB SCH (11:17)
[2025-01-27 12:39] LABS: POTASSIUM 3.2 mmol/L (3.5-5.1)
[2025-01-27 12:51] LABS: BLOOD UREA NITROGEN 16.1 mg/dL (7-18); CALCIUM 8.7 mg/dL (8.5-10.1)
[2025-01-27 12:55] LABS: CREATININE 0.8 mg/dL (0.55-1.3)
[2025-01-27] MEDS: ARTIFICIAL TEARS OPHTHALMIC DROPS OU PRN (21:35)
[2025-01-28] MEDS: EMPAGLIFLOZIN (JARDIANCE) 10 MG TABLET PO SCH (06:15)
[2025-01-28 10:07] VITALS: BP 115/55; PULSE 80; TEMP 97.2
[2025-01-28] MEDS ORDERED: POTASSIUM CHLORIDE ORAL LIQUID 20 MEQ/15 ML PO ONE (11:47)
[2025-01-28 12:48] LABS: POTASSIUM 3.9 mmol/L (3.5-5.1)
[2025-01-28 12:49] LABS: CALCIUM 9.4 mg/dL (8.5-10.1)
[2025-01-28 12:50] LABS: BLOOD UREA NITROGEN 14.3 mg/dL (7-18)
[2025-01-28 12:53] LABS: CREATININE 0.9 mg/dL (0.55-1.3)
== END 2025-01-28 15:57 | disposition home or self-care (01) ==
LOC: JER 08:51 → JERBED 14:07 → UNDOADMOB 14:07 → INTOOBSV 14:07 → JERBED 16:27 → J5S 16:27 → JERBED 01-26 12:04 → J5S 01-27 07:54
PROVIDERS: ADMIT Student in an Organized Health Care Education/Training Program
PROC: 3E033NZ Introduction of Analgesics, Hypnotics, Sedatives into Peripheral Vein, Percutaneous Approach (ICD-10-PCS; principal; 2025-01-26)
PROC: 3E033GC Introduction of Other Therapeutic Substance into Peripheral Vein, Percutaneous Approach (ICD-10-PCS; 2025-01-26)
PROC: 3E033GC Introduction of Other Therapeutic Substance into Peripheral Vein, Percutaneous Approach (ICD-10-PCS; 2025-01-26)
PROC: 3E0337Z Introduction of Electrolytic and Water Balance Substance into Peripheral Vein, Percutaneous Approach (ICD-10-PCS; 2025-01-26)
PROC: 3E033NZ Introduction of Analgesics, Hypnotics, Sedatives into Peripheral Vein, Percutaneous Approach (ICD-10-PCS; 2025-01-26)
PROC: 3E03329 Introduction of Other Anti-infective into Peripheral Vein, Percutaneous Approach (ICD-10-PCS; 2025-01-26)
PROC: 3E033GC Introduction of Other Therapeutic Substance into Peripheral Vein, Percutaneous Approach (ICD-10-PCS; 2025-01-26)
DX: I27.20 Pulmonary hypertension, unspecified (principal); I48.91 Unspecified atrial fibrillation; Z79.01 Long term (current) use of anticoagulants; J44.9 Chronic obstructive pulmonary disease, unspecified; M32.9 Systemic lupus erythematosus, unspecified; D50.9 Iron deficiency anemia, unspecified; Z90.49 Acquired absence of other specified parts of digestive tract; N20.0 Calculus of kidney; H35.30 Unspecified macular degeneration; K44.9 Diaphragmatic hernia without obstruction or gangrene; I50.9 Heart failure, unspecified; Z88.2 Allergy status to sulfonamides; Z88.8 Allergy status to other drugs, medicaments and biological substances
CPT/HCPCS: 0241U-QW; 36415; 71045-TC-FY; 74177-TC; 80048; 80053; 81003; 82248; 82962; 83036; 83605; 83690; 83735; 84100; 84484; 85025; 86140; 87086; 87186; 93005; 93010; 96361; 96365; 96367; 96375; 97116-GP; 97161-GP; 99285-25; G0378; J0131

== ENCOUNTER 2025-03-01 17:32 | Emergency (ER) | payer OTHER ==
[2025-03-01 18:04] VITALS: BP 125/70; PULSE 89; RESP 18; TEMP 98.3; BMI 29.2
[2025-03-01 20:23] LABS: EPI CELLS 3 /uL (0-25.1); HYALINE CASTS 0 /uL (0-3.1); PH,URINE 5.5 (5.0-8.0); URINE APPEARANCE CLOUDY; URINE BACTERIA >9,000 /uL (0-1359); URINE BILIRUBIN NEGATIVE (NEGATIVE); URINE COLOR YELLOW; URINE GLUCOSE (UA) 1+ (NEGATIVE); URINE KETONE NEGATIVE (NEGATIVE); URINE LEUK ESTERASE 3+ (NEGATIVE); URINE NITRITE NEGATIVE (NEGATIVE); URINE PROTEIN NEGATIVE (NEGATIVE); URINE RBC 6 /uL (0-23.9); URINE WBC 712 /uL (0-25.8)
[2025-03-01 20:32] LABS: BASOPHILS # 0.08 x10^3/uL (0.01-0.08); EOSINOPHIL % 2.4 % (0.7-5.8); EOSINOPHILS # 0.23 x10^3/uL (0.04-0.36); HEMATOCRIT 42.9 % (34.1-44.9); HEMOGLOBIN 13.9 g/dL (11.2-15.7); MCHC 32.4 g/dl (32.2-35.5); MEAN CELL VOLUME 91.9 fl (79.4-94.8); MEAN PLT VOLUME 9.9 fl (9.4-12.3); MONOCYTE # 0.78 x10^3/uL (0.24-0.86); MONOCYTE % 8.3 % (4.7-12.5); PLATELET COUNT 190 x10^3/uL (182-369); RDW 15.9 % (12.5-17.0)
[2025-03-01] MEDS ORDERED: NITROFURANTOIN MACROCRYSTAL 50 MG CAPSULE (FP) ONE ×2 (20:45→21:50)
[2025-03-01] MEDS: NITROFURANTOIN MONOHYD/M-CRYST 100 MG CAPSULE PO ONE (20:48)
[2025-03-01 20:49] LABS: INR 1.51 (0.83-1.09); PROTHROMBIN TIME (PATIENT) 16.5 SEC (9.7-13.0)
[2025-03-01 20:52] LABS: ACTIVATED PTT 63.8 SECONDS (25.2-36.5)
[2025-03-01 21:01] LABS: POTASSIUM 3.8 mmol/L (3.5-5.1)
[2025-03-01 21:03] LABS: CALCIUM 9.6 mg/dL (8.5-10.1)
[2025-03-01 21:04] LABS: ALBUMIN 3.3 g/dl (3.4-5.0); BLOOD UREA NITROGEN 18.4 mg/dL (7-18); MAGNESIUM 2.8 mg/dL (1.8-2.4)
[2025-03-01 21:07] LABS: CREATININE 0.8 mg/dL (0.55-1.3)
[2025-03-01 21:08] LABS: BILIRUBIN,TOTAL 0.6 mg/dL (0.2-1)
[2025-03-01 21:09] LABS: TOT PROT 6.2 g/dl (6.4-8.2)
[2025-03-01] MEDS: NITROFURANTOIN MACROCRYSTAL 50 MG CAPSULE (FP) PO ONE (21:57)
== END 2025-03-02 00:33 | disposition home or self-care (01) ==
LOC: JER 17:32
PROC: 0T9B70Z Drainage of Bladder with Drainage Device, Via Natural or Artificial Opening (ICD-10-PCS; principal; 2025-03-01)
DX: N39.0 Urinary tract infection, site not specified (principal); R10.30 Lower abdominal pain, unspecified; R30.0 Dysuria; N39.498 Other specified urinary incontinence
CPT/HCPCS: 36415; 80053; 81003; 83735; 85025; 85610; 85730; 87086; 87186; 99283-25